=== PATIENT | male | born 1970 | race Caucasian/White ===

== ENCOUNTER 2016-07-17 23:42 | Inpatient (IN) | payer BC, OTHER ==
[~2016-07-17] VITALS: Ht 175.3 cm; Wt 211.8 kg
[~2016-07-17 23:42] MED LIST: ALBU8.5H2 IH; AMIO200T2 PO; APIX2.5T PO; APIX5TAB PO; ASCO500T6 PO; ASPI-983 PO; BENZ200C25 PO; CEFU500T PO; CIPR500T78 PO; DILT240C53 PO; DILT240C90 PO; FURO-124 PO; FURO-125 PO; FURO40TA4 PO; LISI1TAB6 PO; METF500T8 PO; METH4TAB PO; METO100T2 PO; METO50TA2 PO; METO50TA7 PO; NYST15OI13 TP; POTA10TA PO; POTA10TA36 PO; SULF1TAB35 PO; VITA1CAP PO; [UNRECOGNIZED DRUG - CODE] PO
[2016-07-17 23:57] LABS: ABG HCO3 27 MMOL/L (23-27); ABG OXYGEN SATURATION 97 % (94-100); ABG PO2 111 MMHG (79-93); ABG TCO2 29.1 MMOL/L (21.0-31.0)
[2016-07-17 23:59] LABS: ABG PCO2 82 MMHG (35-45); ABG PH 7.13 (7.37-7.43)
[2016-07-17 23:59] LABS: BASOPHILS # (AUTO) 0.1 10^3/uL (0.0-0.1); BASOPHILS % (AUTO) 0 % (0-10); EOSINOPHILS # (AUTO) 0.1 10^3/uL (0.0-0.3); EOSINOPHILS % (AUTO) 1 % (0-10); LYMPHOCYTES # (AUTO) 3.9 X 10^3 (1.0-4.0); LYMPHOCYTES % (AUTO) 24 % (12-44); MEAN CORPUSCULAR HEMOGLOBIN 20 PG (25-34); MEAN CORPUSCULAR HGB CONC 27 G/DL (32-36); MEAN CORPUSCULAR VOLUME 73 FL (80-99); MEAN PLATELET VOLUME 10.7 FL (7.4-10.4); MONOCYTES % (AUTO) 12 % (0-12); NEUTROPHILS # (AUTO) 10.6 X 10^3 (1.8-7.8); NEUTROPHILS % (AUTO) 64 % (42-75); PLATELET COUNT 221 10^3/uL (130-400); RED BLOOD COUNT 6.81 10^6/uL (4.35-5.85); RED CELL DISTRIBUTION WIDTH 22.6 % (10.0-14.5); WHITE BLOOD COUNT 16.8 10^3/uL (4.3-11.0)
[2016-07-18] VITALS (31 sets, daily range): BP systolic 112–189; BP diastolic 52–107
[2016-07-18] LABS: PATIENT TEMP 96.7
[2016-07-18] MEDS ORDERED: FUROSEMIDE 40 MG/4 ML INJ (LASIX) ONE
--- NOTE | 2016-07-18 00:03 | ED Cardiac General ---
History of Present Illness General Stated Complaint: POST CODE BLUE Source: patient Exam Limitations: no limitations History of Present Illness Time seen by provider: 23:40 Initial Comments Patient's friend was helping him out of bed when the patient collapsed. Friend was unable to obtain parents and started CPR and called 911. Patient was given epinephrine and intubated with esophageal obturator airway by EMS and regained a pulse. He was asystole on EMS arrival. Friend says he has been ill for several days. He has been complaining of abdominal pain. He has not gotten out of bed much. Allergies and Home Medications Allergies Coded Allergies: Penicillins (Unverified Allergy, Unknown, 12/12/13) Home Medications Apixaban 5 Mg Tablet, 5 MG PO BID, (Reported) Ascorbic Acid 500 Mg Tablet, 500 MG PO DAILY, (Reported) Diltiazem HCl 240 Mg Cap.er.24h, 240 MG PO DAILY, (Reported) Furosemide 40 Mg Tablet, 40 MG PO DAILY, (Reported) Lisinopril/Hydrochlorothiazide 1 Each Tablet, 1 TAB PO DAILY, (Reported) LAST FILLED 12/11/15 #90 Metformin HCl 500 Mg Tab.er.24h, 500 MG PO BID WITH MEALS, (Reported) Metoprolol Tartrate 100 Mg Tablet, 100 MG PO BID, (Reported) LAST FILLED 12/14/15 #180 Multivits-Minerals/FA/Lycopene 1 Each Tablet, 1 TAB PO DAILY, (Reported) Potassium Chloride 10 Meq Tab.er.prt, 10 MEQ PO DAILY, (Reported) Vitamin B Complex 1 Each Capsule, 1 CAP PO DAILY, (Reported) Review of Systems Constitutional: see HPI, other (patient unable to provide review of systems due to condition) Respiratory: See HPI Cardiovascular: See HPI Past Xctcijm-Grogwh-Fulaxd Hx Patient Social History Type Used: Cigarettes Recent Hopitalizations: Yes (DECEMBER 2015) Immunizations Up To Date Tetanus Booster (TDap): More than 5yrs Seasonal Allergies Seasonal Allergies: No Surgeries HX Surgeries: No Respiratory Hx Respiratory Disorders: Yes Respiratory Disorders: Sleep Apnea, COPD Cardiovascular Hx Cardiac Disorders: Yes (CHF, CARDIOVERSION IN JANUARY 2016) Cardiac Disorders: Angina, Atrial Fibrillation, Hypertension Neurological Hx Neurological Disorders: Yes (BEGINNING TO GET TICS AND LOSS OF BALANCE) Reproductive System Hx Reproductive Disorders: No Sexually Transmitted Disease: No HIV/AIDS: No Genitourinary Hx Genitourinary Disorders: No Gastrointestinal Hx Gastrointestinal Disorders: No Musculoskeletal Hx Musculoskeletal Disorders: No Endocrine Hx Endocrine Disorders: Yes (ENLARGED THYROID) Endocrine Disorders: Diabetes, Non-Insulin dep HEENT HX ENT Disorders: No Loss of Vision: Denies Hearing Impairment: Denies Cancer Hx Cancer: No Psychosocial Hx Psychiatric Problems: Yes Behavioral Health Disorders: Sleep Difficulties Integumentary HX Skin/Integumentary Disorder: Yes (R LOWER EXT CELLULITIS) Blood Transfusions Hx Blood Disorders: No Family Medical History Family Medial History: Diabetes mellitus 19 MOTHER Hypertension 19 MOTHER Physical Exam Vital Signs Vital Sign - Last 12Hours 07/17/16 07/18/16 23:43 00:50 Temp 96.7 Pulse 68 Resp 14 B/P (MAP) 158/97 Pulse Ox 97 O2 Delivery Ambu-Bag O2 Flow Rate 15.00 FiO2 100 Capillary Refill : General Appearance: Obese, Other (unconscious, flaccid extremities, being bagged [id number].) HEENT: Pharynx Normal Respiratory: Decreased Breath Sounds Cardiovascular: Regular Rate, Rhythm, No Edema Gastrointestinal: Soft, Distended Extremity: Normal Inspection Neurologic/Psychiatric: Alert, No Motor/Sensory Deficits Skin: Normal Color, Warm/Dry Focused Exam Lactic Acid Level Laboratory Tests Test 07/17/16 23:50 Lactic Acid Level 6.61 MMOL/L (0.50-2.00) *H Progress/Results/Core Measures Results/Orders Lab Results Laboratory Tests Test 07/17/16 23:47 07/17/16 23:50 07/18/16 00:00 07/18/16 00:01 Range/Units Blood Gas Puncture Site RIGHT BRACHIAL Blood Gas Patient Temperature 96.7 Arterial Blood pH 7.13 *L 7.37-7.43 Arterial Blood Partial Pressure CO2 82 *H 35-45 MMHG Arterial Blood Partial Pressure O2 111 H 79-93 MMHG Arterial Blood HCO3 27 23-27 MMOL/L Arterial Blood Total CO2 29.1 21.0-31.0 MMOL/L Arterial Blood Oxygen Saturation 97 94-100 % Arterial Blood Base Excess -2.0 -2.5-2.5 MMOL/L Trav Test NA Blood Gas Ventilator Setting NO Blood Gas Inspired Oxygen 10L White Blood Count 16.8 H 4.3-11.0 10^3/uL Red Blood Count 6.81 H 4.35-5.85 10^6/uL Hemoglobin 13.3 13.3-17.7 G/DL Hematocrit 49 40-54 % Mean Corpuscular Volume 73 L 80-99 FL Mean Corpuscular Hemoglobin 20 L 25-34 PG Mean Corpuscular Hemoglobin Concent 27 L 32-36 G/DL Red Cell Distribution Width 22.6 H 10.0-14.5 % Platelet Count 221 130-400 10^3/uL Mean Platelet Volume 10.7 H 7.4-10.4 FL Neutrophils (%) (Auto) 64 42-75 % Lymphocytes (%) (Auto) 24 12-44 % Monocytes (%) (Auto) 12 0-12 % Eosinophils (%) (Auto) 1 0-10 % Basophils (%) (Auto) 0 0-10 % Neutrophils # (Auto) 10.6 H 1.8-7.8 X 10^3 Lymphocytes # (Auto) 3.9 1.0-4.0 X 10^3 Monocytes # (Auto) 2.0 H 0.0-1.0 X 10^3 Eosinophils # (Auto) 0.1 0.0-0.3 10^3/uL Basophils # (Auto) 0.1 0.0-0.1 10^3/uL Prothrombin Time 18.8 H 12.2-14.7 SEC INR Comment 1.6 H 0.8-1.4 Activated Partial Thromboplast Time 30 24-35 SEC Sodium Level 140 135-145 MMOL/L Potassium Level 5.1 H 3.6-5.0 MMOL/L Chloride Level 98 98-107 MMOL/L Carbon Dioxide Level 23 21-32 MMOL/L Anion Gap 19 H 5-14 MMOL/L Blood Urea Nitrogen 47 H 7-18 MG/DL Creatinine 2.20 H 0.60-1.30 MG/DL Estimat Glomerular Filtration Rate 33 BUN/Creatinine Ratio 21 Glucose Level 215 H 70-105 MG/DL Lactic Acid Level 6.61 *H 0.50-2.00 MMOL/L Calcium Level 8.2 L 8.5-10.1 MG/DL Magnesium Level 2.6 H 1.8-2.4 MG/DL Total Bilirubin 0.6 0.1-1.0 MG/DL Aspartate Amino Transf (AST/SGOT) 104 H 5-34 U/L Alanine Aminotransferase (ALT/SGPT) 102 H 0-55 U/L Alkaline Phosphatase 88 40-136 U/L Troponin I < 0.30 <0.30 NG/ML B-Type Natriuretic Peptide 542.9 H <100.0 PG/ML Total Protein 6.2 L 6.4-8.2 G/DL Albumin 3.6 3.2-4.5 G/DL Urine Color YELLOW Urine Clarity VERY CLOUDY H Urine pH 6 5-9 Urine Specific Slemp 1.025 H 1.016-1.022 Urine Protein 3+ H NEGATIVE Urine Glucose (UA) NEGATIVE NEGATIVE Urine Ketones NEGATIVE NEGATIVE Urine Nitrite NEGATIVE NEGATIVE Urine Bilirubin NEGATIVE NEGATIVE Urine Urobilinogen 4 H NORMAL MG/DL Urine Leukocyte Esterase 2+ H NEGATIVE Urine RBC (Auto) 3+ H NEGATIVE Urine RBC 5-10 H /HPF Urine WBC 5-10 H /HPF Urine Squamous Epithelial Cells 2-5 /HPF Urine Crystals PRESENT H /LPF Urine Amorphous Sediment LARGE RYLEE URATES H /LPF Urine Bacteria FEW H /HPF Urine Casts NONE /LPF Urine Mucus MODERATE H /LPF Urine Other FEW SPERM H /HPF Urine Culture Indicated YES My Orders Orders - RUTH PORTILLO MD Arterial Blood Gas (07/17/16 23:48) Lactic Acid Analyzer (07/17/16 23:48) Cbc With Automated Diff (07/17/16 23:48) Magnesium (07/17/16 23:48) Chest 1 View, Ap/Pa Only (07/17/16 23:48) Ekg Tracing (07/17/16 23:48) Cardiac Profile 1 (07/17/16 23:48) Comprehensive Metabolic Panel (07/17/16 23:48) Protime With Inr (07/17/16 23:48) Partial Thromboplastin Time (07/17/16 23:48) O2 (07/17/16 23:48) Monitor-Rhythm Ecg Trace Only (07/17/16 23:48) Saline Lock/Iv-Start (07/17/16 23:48) BNP (07/17/16 23:48) Furosemide Injection (Lasix Injection) (07/18/16 00:00) Ct Abdomen/Pelvis Wo (07/18/16 00:07) Blood Culture (07/18/16 00:18) Ua Culture If Indicated (07/18/16 00:33) Ns Iv 1000 Ml (Sodium Chloride 0.9%) (07/18/16 01:00) Urine Culture (07/18/16 00:01) Drug Screen Stat (Urine) (07/18/16 01:08) Levofloxacin 500 Mg/100 Ml Iv (Levaquin (07/18/16 01:30) Medications Given in ED Current Medications Medications Dose Ordered Sig/Evie Route Start Time Stop Time Status Last Admin Dose Admin Furosemide 40 mg STK-MED ONCE .ROUTE 07/18/16 00:00 07/18/16 00:04 DC 07/18/16 00:07 40 MG Vital Signs/I&O Vital Sign - Last 12Hours 07/17/16 07/18/16 23:43 00:50 Temp 96.7 Pulse 68 Resp 14 B/P (MAP) 158/97 Pulse Ox 97 98 O2 Delivery Ambu-Bag Ambu-Bag O2 Flow Rate 15.00 FiO2 100 Progress Note : Time: 00:55 Progress Note Patient remains unconscious. He continues to be oxygenated well via the [employer]. [employer]ACHINE was consulted to switch to endotracheal tube. Patient being fluid resuscitated. Initially given some Lasix thinking that he was in pulmonary edema given the look of his x-ray. Will need admission to ICU. Critical Care Note Critical Care Total Time (minutes) Total critical care time spent with this patient was 60 minutes Departure Communication Time/Spoke to Admitting Phy: 01:00 Communication I spoke with Dr. Min who agrees to admit to ICU. Impression Impression: Primary Impression: Cardiopulmonary arrest with successful resuscitation Disposition: ADMITTED INPATIENT Condition: Stable Decision to Admit Reason: Admit from ER (General) Decision to Admit/Date: Jul 18, 2016 Time/Decision to Admit Time: 01:00 Departure-Patient Inst. Referrals: [facility] (PCP/Family) Primary Care Physician RUTH PORTILLO MD Jul 18, 2016 00:03
[2016-07-18] MEDS ORDERED: FUROSEMIDE 40 MG/4 ML INJ (LASIX) IVP ONE (00:15)
[2016-07-18 00:17] LABS: INR 1.6 (0.8-1.4); PROTHROMBIN TIME PATIENT 18.8 SEC (12.2-14.7)
[2016-07-18 00:18] LABS: ALANINE AMINOTRANSFERASE 102 U/L (0-55); ALBUMIN 3.6 G/DL (3.2-4.5); ANION GAP 19 MMOL/L (5-14); ASPARTATE AMINO TRANSFERASE 104 U/L (5-34); BILIRUBIN,TOTAL 0.6 MG/DL (0.1-1.0); BLOOD UREA NITROGEN 47 MG/DL (7-18); BUN/CREATININE RATIO 21; CALCIUM 8.2 MG/DL (8.5-10.1); CARBON DIOXIDE 23 MMOL/L (21-32); CHLORIDE 98 MMOL/L (98-107); GFR ESTIMATED 33; GLUCOSE 215 MG/DL (70-105); MAGNESIUM 2.6 MG/DL (1.8-2.4); POTASSIUM 5.1 MMOL/L (3.6-5.0); SODIUM 140 MMOL/L (135-145); TOTAL PROTEIN 6.2 G/DL (6.4-8.2)
[2016-07-18 00:44] LABS: BILIRUBIN,URINE NEGATIVE (NEGATIVE); KETONES,URINE NEGATIVE (NEGATIVE); LEUKOCYTE ESTERASE ,URINE 2+ (NEGATIVE); NITRITE,URINE NEGATIVE (NEGATIVE); PH,URINE 6 (5-9); PROTEIN,URINE 3+ (NEGATIVE); UROBILINOGEN,URINE 4 MG/DL (NORMAL)
[2016-07-18] MEDS ORDERED: NS IV 1000 ML 1,000 ML IV SCH (01:00)
[2016-07-18] MEDS ORDERED: LEVOFLOXACIN 500 MG/100 ML IV 100 ML IV ONE (01:30)
[2016-07-18] MEDS ORDERED: MIDAZOLAM 5 MG/5 ML (VERSED) VIAL IVP ONE (01:45)
[2016-07-18 02:47] LABS: ABG BASE EXCESS 4.4 MMOL/L (-2.5-2.5); ABG HCO3 31 MMOL/L (23-27); ABG OXYGEN SATURATION 99 % (94-100); ABG PO2 114 MMHG (79-93); ABG TCO2 33.7 MMOL/L (21.0-31.0)
[2016-07-18 02:49] LABS: ABG PCO2 71 MMHG (35-45); ABG PH 7.26 (7.37-7.43); ALLENS TEST YES-POS; PATIENT TEMP 95.5
[2016-07-18] MEDS ORDERED: VANCOMYCIN 1500 MG/NS 500 ML IVPB IV SCH ×2 (03:30)
[2016-07-18] MEDS ORDERED: fentaNYL INJECTION 100 MCG/2 ML AMP ONE (03:32)
[2016-07-18] MEDS ORDERED: NS (IVPB) 50 ML ONE ×2 (03:33→11:11)
[2016-07-18] MEDS: fentaNYL INJECTION 100 MCG/2 ML AMP IV PRN ×3 (03:39→05:42)
[2016-07-18 03:41] LABS: BASOPHILS % (AUTO) 0 % (0-10); EOSINOPHILS % (AUTO) 0 % (0-10); LYMPHOCYTES # (AUTO) 1.2 X 10^3 (1.0-4.0); LYMPHOCYTES % (AUTO) 8 % (12-44); MEAN CORPUSCULAR HEMOGLOBIN 20 PG (25-34); MEAN CORPUSCULAR HGB CONC 27 G/DL (32-36); MEAN CORPUSCULAR VOLUME 72 FL (80-99); MONOCYTES # (AUTO) 2.2 X 10^3 (0.0-1.0); MONOCYTES % (AUTO) 16 % (0-12); NEUTROPHILS # (AUTO) 10.7 X 10^3 (1.8-7.8); NEUTROPHILS % (AUTO) 75 % (42-75); PLATELET COUNT 217 10^3/uL (130-400); RED BLOOD COUNT 6.08 10^6/uL (4.35-5.85); RED CELL DISTRIBUTION WIDTH 22.2 % (10.0-14.5); WHITE BLOOD COUNT 14.1 10^3/uL (4.3-11.0)
[2016-07-18] MEDS ORDERED: CLINDAMYCIN 900 MG/6ML (CLEOCIN) VIAL IV SCH (03:45)
[2016-07-18 03:49] LABS: ABG BASE EXCESS 5.1 MMOL/L (-2.5-2.5); ABG HCO3 31 MMOL/L (23-27); ABG OXYGEN SATURATION 99 % (94-100); ABG PCO2 63 MMHG (35-45); ABG PO2 106 MMHG (79-93); ABG TCO2 33.5 MMOL/L (21.0-31.0)
[2016-07-18 03:54] LABS: ABG PH 7.31 (7.37-7.43); ALLENS TEST YES-POS; PATIENT TEMP 95.6
[2016-07-18] MEDS ORDERED: VANCOMYCIN 1000 MG/VIAL ONE (03:54)
[2016-07-18] MEDS ORDERED: NS (IVPB) 100 ML ONE ×2 (03:54→05:45)
[2016-07-18] MEDS ORDERED: NS (IVPB) 250 ML ONE (03:54)
[2016-07-18] MEDS ORDERED: VANCOMYCIN 500 MG/VIAL IV ONE (03:54)
[2016-07-18 03:59] LABS: CREATININE SERUM 2.04 MG/DL (0.60-1.30); MAGNESIUM 2.2 MG/DL (1.8-2.4); PHOSPHORUS 6.2 MG/DL (2.3-4.7); POTASSIUM 5.2 MMOL/L (3.6-5.0)
[2016-07-18] MEDS ORDERED: NS IV 1000 ML 1,000 ML IV ONE (05:15)
[2016-07-18] MEDS ORDERED: MIDAZOLAM FOR DRIPS 10 MG/2 ML VIAL ONE (05:44)
[2016-07-18] MEDS: KCL 20 MEQ TAB (K-DUR) PO SCH (05:53)
[2016-07-18] MEDS: POTASSIUM CL 10MEQ/50ML IVPB 50 ML IV SCH (05:53)
[2016-07-18] MEDS: MAGNESIUM 1 GM/100 ML IVPB 100 ML IV SCH (05:53)
[2016-07-18] MEDS: MIDAZOLAM INJECTION FOR DRIPS 50 MG in NS (IVPB) 90 ML IV SCH (05:58)
--- NOTE | 2016-07-18 06:33 | Pulmonary Consultation ---
History of Present Illness History of Present Illness Date of Consultation 07/18/16 06:21 Date of Admission History of Present Illness 45yo presented to ED after witnessed arrest Pt was coded for 19min prior to ED arrival. Pt was asystole upon EMS arrival. Pt is intubated with esophageal obturator. Anesthesia was called to place regular ET tube however secondary to patients morbid obesity and large tongue they decided to wait until this morning and do it in surgery. Unable to obtain ROS currently secondary to patient being unresponsive on ventilator. No family/friends currently at bedside. Allergies and Home Medications Allergies Coded Allergies: Penicillins (Unverified Allergy, Unknown, 12/12/13) Home Medications Apixaban 5 Mg Tablet, 5 MG PO BID, (Reported) Ascorbic Acid 500 Mg Tablet, 500 MG PO DAILY, (Reported) Diltiazem HCl 240 Mg Cap.er.24h, 240 MG PO DAILY, (Reported) Furosemide 40 Mg Tablet, 40 MG PO DAILY, (Reported) Lisinopril/Hydrochlorothiazide 1 Each Tablet, 1 TAB PO DAILY, (Reported) LAST FILLED 12/11/15 #90 Metformin HCl 500 Mg Tab.er.24h, 500 MG PO BID WITH MEALS, (Reported) Metoprolol Tartrate 100 Mg Tablet, 100 MG PO BID, (Reported) LAST FILLED 12/14/15 #180 Multivits-Minerals/FA/Lycopene 1 Each Tablet, 1 TAB PO DAILY, (Reported) Potassium Chloride 10 Meq Tab.er.prt, 10 MEQ PO DAILY, (Reported) Vitamin B Complex 1 Each Capsule, 1 CAP PO DAILY, (Reported) Past Vwytpln-Oshrff-Usprhh Hx Patient Social History Alcohol Use: Denies Use Recreational Drug Use: No Smoking Status: Current Someday Smoker Type Used: Cigarettes 2nd Hand Smoke Exposure: No Recent Foreign Travel: No Contact w/Someone Who Travel: No Recent Infectious Disease Expo: No Recent Hopitalizations: No Immunizations Up To Date Tetanus Booster (TDap): More than 5yrs Seasonal Allergies Seasonal Allergies: No Surgeries HX Surgeries: No Respiratory Hx Respiratory Disorders: Yes Respiratory Disorders: Sleep Apnea, COPD Cardiovascular Hx Cardiac Disorders: Yes (CHF, CARDIOVERSION IN JANUARY 2016) Cardiac Disorders: Angina, Atrial Fibrillation, Hypertension Neurological Hx Neurological Disorders: Yes Reproductive System Hx Reproductive Disorders: No Sexually Transmitted Disease: No HIV/AIDS: No Genitourinary Hx Genitourinary Disorders: No Gastrointestinal Hx Gastrointestinal Disorders: No Musculoskeletal Hx Musculoskeletal Disorders: No Endocrine Hx Endocrine Disorders: Yes (ENLARGED THYROID) Endocrine Disorders: Diabetes, Non-Insulin dep HEENT HX ENT Disorders: No Loss of Vision: Denies Hearing Impairment: Denies Cancer Hx Cancer: No Psychosocial Hx Psychiatric Problems: Yes Behavioral Health Disorders: Sleep Difficulties Integumentary HX Skin/Integumentary Disorder: Yes (R LOWER EXT CELLULITIS) Blood Transfusions Hx Blood Disorders: No Family Medical History Family Medial History: Diabetes mellitus 19 MOTHER Hypertension 19 MOTHER Exam Exam Vital Signs Date Time Temp Pulse Resp B/P (MAP) Pulse Ox O2 Delivery O2 Flow Rate FiO2 07/18/16 05:58 130/76 07/18/16 04:40 96.7 07/18/16 04:30 62 10 134/94 98 Mechanical Ventilator 70.00 07/18/16 04:26 61 31 98 70 07/18/16 04:00 56 10 130/83 98 Mechanical Ventilator 70.00 07/18/16 03:45 55 28 138/86 98 Mechanical Ventilator 70.00 07/18/16 03:30 60 18 138/86 98 Mechanical Ventilator 70.00 07/18/16 03:15 58 40 130/82 100 Mechanical Ventilator 70.00 07/18/16 03:00 54 17 124/64 99 Mechanical Ventilator 70.00 07/18/16 03:00 53 32 100 70 07/18/16 02:45 52 20 118/73 99 Mechanical Ventilator 80.00 07/18/16 02:30 95.5 55 13 118/75 99 Mechanical Ventilator 80.00 07/18/16 02:30 57 43 100 80 07/18/16 02:15 56 18 100 100 07/18/16 02:15 67 14 98 07/18/16 00:50 96.7 68 14 158/97 98 Ambu-Bag 07/17/16 23:43 97 Ambu-Bag 15.00 100 07/17/16 23:42 14 Ambu-Bag 15.00 100.00 I & O 07/18/16 07:00 Intake Total 2506 ml Balance 2506 ml General Appearance: Obese, Other (unresponsive ) HEENT: Other (pupils are fixed) Respiratory: Decreased Breath Sounds Cardiovascular: Regular Rate, Rhythm, No Edema Capillary Refill: Greater Than 3 Seconds Gastrointestinal: normal bowel sounds, non tender, soft Extremity: Normal Inspection Neurologic/Psychiatric: Other (Pt does respond to painful stimuli ) Skin: Normal Color, Warm/Dry Lymphatic: No Adenopathy Results Lab Laboratory Tests 07/17/16 23:50 07/18/16 03:34 Assessment/Plan Assessment/Plan S/P Code blue Acute respiratory failure with very difficult airway - esophageal obturator tube needs to be exchanged with endotracheal tube. Anesthesia evaluated patient and state that his tongue is too swollen for oral intubation. Morbidly obese with probable severe PAYAL contributing to his current status -Given patients difficult airway consider tracheostomy tube if patient is stable for surgery. If small endotracheal tube is placed it will make ventilator weaning much more difficult. -Consult Dr. Javed for possible tracheostomy Dependent atelectasis Abdominal Cellulitis -tobiaso and Lindsey Acute renal failure -IVF Clinical Quality Measures DVT/VTE Risk/Contraindication: Risk Factor Score Per Nursin RFS Level Per Nursing on Admit: 4+=Very High YEYO ALLISON DO Jul 18, 2016 06:33
--- NOTE | 2016-07-18 06:50 | Diagnostic Imaging Report ---
PROCEDURE: CT abdomen and pelvis without contrast. TECHNIQUE: Multiple contiguous axial images were obtained through the abdomen and pelvis without the use of intravenous contrast. INDICATION: Generalized abdominal pain, status post CODE BLUE. COMPARISON: None. DISCUSSION: Consolidation is present within the bilateral lung bases, atelectasis and/or pneumonia. Mild cardiomegaly is present. No pleural or pericardial fluid. Bilateral rib fractures are noted, likely due to recent CPR. Cholelithiasis is present. Fatty hepatomegaly is noted. Mild ascites is present. Mild induration of the mesentery, likely due to edema. Anasarca is noted. The appendix is unremarkable. The large and small bowel loops appear within normal limits. The prostate is within normal size. Urinary bladder is decompressed by Gallegos catheter. The stomach, spleen, pancreas, adrenal glands, and kidneys are unremarkable. IMPRESSION: 1. Ascites, mesenteric edema, and anasarca. 2. Bibasilar consolidation. 3. Cholelithiasis. 4. Fatty hepatomegaly. 5. Cardiomegaly and bilateral rib fractures. 6. Agree with preliminary report. Dictated by: Dictated on workstation # [id number]
[2016-07-18] MEDS ORDERED: DEXTROSE 50% 50 ML (IMS) SYR IV ONE (07:15)
[2016-07-18] MEDS ORDERED: inSUlin (REGULAR) HUMAN 1 UNIT/0.01 ML (CHARGE PER UNIT) IV ONE (07:15)
[2016-07-18] MEDS ORDERED: ROCURONIUM 50 MG/5 ML (ZEMURON) VIAL IV ONE (07:20)
[2016-07-18] MEDS ORDERED: PROPOFOL DRIP (ICU) 100 ML IV ONE ×3 (07:24→18:56)
--- NOTE | 2016-07-18 07:29 | Diagnostic Imaging Report ---
INDICATION: Dyspnea, intubation, status post CODE BLUE. DISCUSSION: Two views of the chest were obtained, comparison 01/27/2016. Exam is limited due to portable technique and patient body habitus. Endotracheal tube is projected adjacent to the air-filled trachea, concerning for esophageal intubation. Recommend clinical correlation. Cardiomegaly is noted. Bilateral mixed interstitial alveolar opacities likely represent mild pulmonary edema. No pleural fluid or pneumothorax identified on the supine views. Elevated right hemidiaphragm is again noted. Impression: 1. Cardiomegaly with mild pulmonary edema. 2. Endotracheal tube is projected adjacent to the air-filled trachea on these two supine views, concerning for esophageal intubation. Recommend clinical correlation. Note to logistics support: This is a critical finding, please call results. Report was called to Carol/REST ROOM ATTENDANT by vikas at 7:27 am. Dictated by: Dictated on workstation # [id number]
[2016-07-18] MEDS: inSUlin (REGULAR) HUMAN 1 UNIT/0.01 ML (CHARGE PER UNIT) SC SCH ×5 (07:51→23:34)
[2016-07-18] MEDS: FAMOTIDINE 20MG/2ML IV (PEPCID) IV SCH ×2 (08:45→20:12)
[2016-07-18] MEDS ORDERED: ENOXAPARIN 40 MG/0.4 ML (LOVENOX) SYR SC SCH (09:30)
[2016-07-18] MEDS: PROPOFOL DRIP (ICU) 100 ML IV SCH ×5 (09:31→22:49)
--- NOTE | 2016-07-18 10:03 | Diagnostic Imaging Report ---
EXAMINATION: Portable upright radiograph of the chest. INDICATION: ET tube placement. COMPARISON: 07/17/2016. FINDINGS: There is an ET tube seen in the mid trachea. An NG tube is also noted with its distal tip not well seen on this image. The tip is probably in the stomach, however. There is interval development of a large opacity in the right upper lobe, likely lobar atelectasis. There is also infiltrate or atelectasis in the right infrahilar region. Background vascular congestion is suggested. The heart size is markedly enlarged. IMPRESSION: Development of large consolidation in the right upper lobe, likely lobar atelectasis. There is also right infrahilar patchy infiltrate or atelectasis and background vascular congestion. The findings were discussed with Dr. Bhatti at the time of dictation. Dictated by: Dictated on workstation # [id number]
--- NOTE | 2016-07-18 11:00 | Pulmonary Progress Note ---
Standard Progress Note Progress Notes PT is hypoxic requiring increased oxygen. Assessment & Plan S/P Code blue Acute respiratory failure with very difficult airway Morbidly obese with probable severe PAYAL contributing to his current status Dependent atelectasis Abdominal Cellulitis -vanco and Cleocin Acute renal failure -IVF Called by radiology secondary to CXR showing RUL lobar atelectasis. Discussed with family will do bronchoscopy secondary to probable mucous plugging. Total time with patient and family 60min. YEYO ALLISON DO Jul 18, 2016 11:00
[2016-07-18] MEDS: CLINDAMYCIN 900 MG/NS 50 ML IVPB IV SCH ×4 (11:44→19:14)
[2016-07-18] MEDS: VANCOMYCIN INJECTION 2,000 MG in NS IV 500 ML 500 ML IV SCH (11:44)
--- NOTE | 2016-07-18 11:47 | Pulmonary Procedures ---
Pulmonary Procedures Date of Procedure Date of Service: Jul 18, 2016 Bronch Bronchoscopy with bronchoalveolar lavage (BAL). Preop DX mucous plugging elizabeth RUL Postop DX: same Complications: none After informed consent obtained and formal time out pt was sedated using Fentanyl and Versed. Bronchoscope was advanced through the ET tube. An anatomical tour was undertaken down to the segmental bronchi bilaterally. No endobronchial lesions noted. From the RUL a bronchoalveolar lavage (BAL), was obtained. Pt had mucous plugging bilaterally elizabeth RUL Pt tolerated procedure well. No complications noted. Stat CXR is pending. YEYO ALLISON DO Jul 18, 2016 11:47
[2016-07-18] MEDS ORDERED: AMIO200T2 PO (12:00)
--- NOTE | 2016-07-18 12:09 | Diagnostic Imaging Report ---
Portable semi-upright AP view of the chest. INDICATION: Post bronchoscopy. FINDINGS: There is better aeration in the right upper lobe with persistent atelectasis. Right infrahilar patchy infiltrate is still seen. The left side demonstrates infrahilar atelectasis with background vascular congestion. Moderate cardiomegaly is seen. The ET tube and NG tube are in good position. IMPRESSION: Slightly improved right upper lobe atelectasis. Bilateral infrahilar infiltrates and background pulmonary vascular congestion stable. Dictated by: Dictated on workstation # [id number]
--- NOTE | 2016-07-18 12:32 | History & Physicial ([facility]S) ---
HPI History of Present Illness: 45 yo M that had a witnessed collapse as roommate was trying to help him get out of bed. Roommate began CPR and patient received CPR for 19 mins prior to ER arrival. Speaking with roommate he states that Sonny had not been feeling well for the past several days and was complaining about abdominal pain. Roommate denies any other complaints by patient. Source: other (Roomate) Exam Limitations: clinical condition Date seen by provider: Jul 18, 2016 Attending Physician Nadia Min DO PCP William,[facility] Date of Admission Jul 18, 2016 at 00:15 Home Medications Home Medications Reviewed patient Home Medication Reconciliation Form Allergies Coded Allergies: Penicillins (Unverified Allergy, Unknown, 12/12/13) [id number] Hx Patient Social History Alcohol Use: Denies Use Recreational Drug Use: No Smoking Status: Current Someday Smoker Type Used: Cigarettes 2nd Hand Smoke Exposure: No Recent Foreign Travel: No Contact w/other who traveled: No Recent Hopitalizations: No Recent Infectious Disease Expo: No Immunizations Up To Date Tetanus Booster (TDap): More than 5yrs Past Medical History Atrial Fibrillation NIDDM HTN Systolic Heart Failure Family Medical History Family History: Diabetes mellitus 19 MOTHER Hypertension 19 MOTHER Review of Systems ([facility]C) Constitutional: other (Unable to get ROS because patient unresponsive and intubated) Reviewed Test Results Reviewed Test Results Lab Laboratory Tests Test 07/17/16 23:47 07/17/16 23:50 07/18/16 00:00 07/18/16 00:01 Range/Units Blood Gas Puncture Site RIGHT BRACHIAL Blood Gas Patient Temperature 96.7 Arterial Blood pH 7.13 *L 7.37-7.43 Arterial Blood Partial Pressure CO2 82 *H 35-45 MMHG Arterial Blood Partial Pressure O2 111 H 79-93 MMHG Arterial Blood HCO3 27 23-27 MMOL/L Arterial Blood Total CO2 29.1 21.0-31.0 MMOL/L Arterial Blood Oxygen Saturation 97 94-100 % Arterial Blood Base Excess -2.0 -2.5-2.5 MMOL/L Trav Test NA Blood Gas Ventilator Setting NO Blood Gas Inspired Oxygen 10L White Blood Count 16.8 H 4.3-11.0 10^3/uL Red Blood Count 6.81 H 4.35-5.85 10^6/uL Hemoglobin 13.3 13.3-17.7 G/DL Hematocrit 49 40-54 % Mean Corpuscular Volume 73 L 80-99 FL Mean Corpuscular Hemoglobin 20 L 25-34 PG Mean Corpuscular Hemoglobin Concent 27 L 32-36 G/DL Red Cell Distribution Width 22.6 H 10.0-14.5 % Platelet Count 221 130-400 10^3/uL Mean Platelet Volume 10.7 H 7.4-10.4 FL Neutrophils (%) (Auto) 64 42-75 % Lymphocytes (%) (Auto) 24 12-44 % Monocytes (%) (Auto) 12 0-12 % Eosinophils (%) (Auto) 1 0-10 % Basophils (%) (Auto) 0 0-10 % Neutrophils # (Auto) 10.6 H 1.8-7.8 X 10^3 Lymphocytes # (Auto) 3.9 1.0-4.0 X 10^3 Monocytes # (Auto) 2.0 H 0.0-1.0 X 10^3 Eosinophils # (Auto) 0.1 0.0-0.3 10^3/uL Basophils # (Auto) 0.1 0.0-0.1 10^3/uL Prothrombin Time 18.8 H 12.2-14.7 SEC INR Comment 1.6 H 0.8-1.4 Activated Partial Thromboplast Time 30 24-35 SEC Sodium Level 140 135-145 MMOL/L Potassium Level 5.1 H 3.6-5.0 MMOL/L Chloride Level 98 98-107 MMOL/L Carbon Dioxide Level 23 21-32 MMOL/L Anion Gap 19 H 5-14 MMOL/L Blood Urea Nitrogen 47 H 7-18 MG/DL Creatinine 2.20 H 0.60-1.30 MG/DL Estimat Glomerular Filtration Rate 33 BUN/Creatinine Ratio 21 Glucose Level 215 H 70-105 MG/DL Lactic Acid Level 6.61 *H 0.50-2.00 MMOL/L Calcium Level 8.2 L 8.5-10.1 MG/DL Magnesium Level 2.6 H 1.8-2.4 MG/DL Total Bilirubin 0.6 0.1-1.0 MG/DL Aspartate Amino Transf (AST/SGOT) 104 H 5-34 U/L Alanine Aminotransferase (ALT/SGPT) 102 H 0-55 U/L Alkaline Phosphatase 88 40-136 U/L Troponin I < 0.30 <0.30 NG/ML B-Type Natriuretic Peptide 542.9 H <100.0 PG/ML Total Protein 6.2 L 6.4-8.2 G/DL Albumin 3.6 3.2-4.5 G/DL Urine Opiates Screen NEGATIVE NEGATIVE Urine Oxycodone Screen NEGATIVE NEGATIVE Urine Methadone Screen NEGATIVE NEGATIVE Urine Propoxyphene Screen NEGATIVE NEGATIVE Urine Barbiturates Screen NEGATIVE NEGATIVE Ur Tricyclic Antidepressants Screen NEGATIVE NEGATIVE Urine Phencyclidine Screen NEGATIVE NEGATIVE Urine Amphetamines Screen NEGATIVE NEGATIVE Urine Methamphetamines Screen NEGATIVE NEGATIVE Urine Benzodiazepines Screen NEGATIVE NEGATIVE Urine Cocaine Screen NEGATIVE NEGATIVE Urine Cannabinoids Screen NEGATIVE NEGATIVE Urine Color YELLOW Urine Clarity VERY CLOUDY H Urine pH 6 5-9 Urine Specific [place] 1.025 H 1.016-1.022 Urine Protein 3+ H NEGATIVE Urine Glucose (UA) NEGATIVE NEGATIVE Urine Ketones NEGATIVE NEGATIVE Urine Nitrite NEGATIVE NEGATIVE Urine Bilirubin NEGATIVE NEGATIVE Urine Urobilinogen 4 H NORMAL MG/DL Urine Leukocyte Esterase 2+ H NEGATIVE Urine RBC (Auto) 3+ H NEGATIVE Urine RBC 5-10 H /HPF Urine WBC 5-10 H /HPF Urine Squamous Epithelial Cells 2-5 /HPF Urine Crystals PRESENT H /LPF Urine Amorphous Sediment LARGE RYLEE URATES H /LPF Urine Bacteria FEW H /HPF Urine Casts NONE /LPF Urine Mucus MODERATE H /LPF Urine Other FEW SPERM H /HPF Urine Culture Indicated YES Test 07/18/16 01:45 07/18/16 02:35 07/18/16 03:34 07/18/16 03:43 Range/Units Lactic Acid Level 1.58 0.50-2.00 MMOL/L Blood Gas Puncture Site RIGHT RADIAL RIGHT RADIAL Blood Gas Patient Temperature 95.5 95.6 Arterial Blood pH 7.26 *L 7.31 *L 7.37-7.43 Arterial Blood Partial Pressure CO2 71 *H 63 H 35-45 MMHG Arterial Blood Partial Pressure O2 114 H 106 H 79-93 MMHG Arterial Blood HCO3 31 H 31 H 23-27 MMOL/L Arterial Blood Total CO2 33.7 H 33.5 H 21.0-31.0 MMOL/L Arterial Blood Oxygen Saturation 99 99 94-100 % Arterial Blood Base Excess 4.4 H 5.1 H -2.5-2.5 MMOL/L Trav Test YES-POS YES-POS Blood Gas Ventilator Setting YES YES Blood Gas Inspired Oxygen 80% 70% White Blood Count 14.1 H 4.3-11.0 10^3/uL Red Blood Count 6.08 H 4.35-5.85 10^6/uL Hemoglobin 12.0 L 13.3-17.7 G/DL Hematocrit 44 40-54 % Mean Corpuscular Volume 72 L 80-99 FL Mean Corpuscular Hemoglobin 20 L 25-34 PG Mean Corpuscular Hemoglobin Concent 27 L 32-36 G/DL Red Cell Distribution Width 22.2 H 10.0-14.5 % Platelet Count 217 130-400 10^3/uL Mean Platelet Volume 7.4-10.4 FL Neutrophils (%) (Auto) 75 42-75 % Lymphocytes (%) (Auto) 8 L 12-44 % Monocytes (%) (Auto) 16 H 0-12 % Eosinophils (%) (Auto) 0 0-10 % Basophils (%) (Auto) 0 0-10 % Neutrophils # (Auto) 10.7 H 1.8-7.8 X 10^3 Lymphocytes # (Auto) 1.2 1.0-4.0 X 10^3 Monocytes # (Auto) 2.2 H 0.0-1.0 X 10^3 Eosinophils # (Auto) 0.0 0.0-0.3 10^3/uL Basophils # (Auto) 0.0 0.0-0.1 10^3/uL Sodium Level 141 135-145 MMOL/L Potassium Level 5.2 H 3.6-5.0 MMOL/L Chloride Level 100 98-107 MMOL/L Carbon Dioxide Level 29 21-32 MMOL/L Anion Gap 12 5-14 MMOL/L Blood Urea Nitrogen 46 H 7-18 MG/DL Creatinine 2.04 H 0.60-1.30 MG/DL Estimat Glomerular Filtration Rate 35 BUN/Creatinine Ratio 23 Glucose Level 161 H 70-105 MG/DL Calcium Level 8.0 L 8.5-10.1 MG/DL Phosphorus Level 6.2 H 2.3-4.7 MG/DL Magnesium Level 2.2 1.8-2.4 MG/DL C-Reactive Protein High Sensitivity 1.52 H 0.00-0.50 MG/DL Test 07/18/16 08:45 Range/Units Glucometer 129 H 70-110 MG/DL Radiology Date of Exam: 07/17/16 CHEST 1 VIEW, AP/PA ONLY INDICATION: Dyspnea, intubation, status post CODE BLUE. DISCUSSION: Two views of the chest were obtained, comparison 01/27/2016. Exam is limited due to portable technique and patient body habitus. Endotracheal tube is projected adjacent to the air-filled trachea, concerning for esophageal intubation. Recommend clinical correlation. Cardiomegaly is noted. Bilateral mixed interstitial alveolar opacities likely represent mild pulmonary edema. No pleural fluid or pneumothorax identified on the supine views. Elevated right hemidiaphragm is again noted. Impression: 1. Cardiomegaly with mild pulmonary edema. 2. Endotracheal tube is projected adjacent to the air-filled trachea on these two supine views, concerning for esophageal intubation. Recommend clinical correlation. Note to plate take out worker: This is a critical finding, please call results. Date of Exam: 07/18/16 CT ABDOMEN/PELVIS WO PROCEDURE: CT abdomen and pelvis without contrast. TECHNIQUE: Multiple contiguous axial images were obtained through the abdomen and pelvis without the use of intravenous contrast. INDICATION: Generalized abdominal pain, status post CODE BLUE. COMPARISON: None. DISCUSSION: Consolidation is present within the bilateral lung bases, atelectasis and/or pneumonia. Mild cardiomegaly is present. No pleural or pericardial fluid. Bilateral rib fractures are noted, likely due to recent CPR. Cholelithiasis is present. Fatty hepatomegaly is noted. Mild ascites is present. Mild induration of the mesentery, likely due to edema. Anasarca is noted. The appendix is unremarkable. The large and small bowel loops appear within normal limits. The prostate is within normal size. Urinary bladder is decompressed by Gallegos catheter. The stomach, spleen, pancreas, adrenal glands, and kidneys are unremarkable. IMPRESSION: 1. Ascites, mesenteric edema, and anasarca. 2. Bibasilar consolidation. 3. Cholelithiasis. 4. Fatty hepatomegaly. 5. Cardiomegaly and bilateral rib fractures. 6. Agree with preliminary report. Date of Exam:07/18/16 CT HEAD WO PROCEDURE: CT head without contrast. TECHNIQUE: Multiple contiguous axial images were obtained through the brain without the use of intravenous contrast. INDICATION: Periorbital edema. Unresponsive. COMPARISON: CT head without contrast 01/20/2014. FINDINGS: No intracranial hemorrhage, mass effect, hydrocephalus or extra-axial fluid collections. No CT evidence of acute infarction. Mild mucosal thickening and small amount of fluid in the maxillary and ethmoid sinuses. There are no inflammatory changes in the post-septal orbits. Prominence of the soft tissues overlying the orbits bilaterally, right greater than left. Visualized osseous structures appear intact. ETT. OGT. IMPRESSION: 1. No acute intracranial CT findings. 2. Soft tissue prominence overlying the orbits bilaterally, right greater than left. No mass or inflammatory changes within the post-septal orbits. Physical Exam-([facility]) Physical Exam Vital Signs VS - Last 72 Hours, by Label 07/17/16 07/17/16 07/18/16 07/18/16 23:42 23:43 00:50 02:10 Temp 96.7 Pulse 68 Resp 14 14 B/P (MAP) 158/97 Pulse Ox 97 98 O2 Delivery Ambu-Bag Ambu-Bag Ambu-Bag O2 Flow Rate 15.00 15.00 100.00 FiO2 100 80 07/18/16 07/18/16 07/18/16 07/18/16 02:15 02:15 02:30 02:30 Temp 95.5 Pulse 67 56 57 55 Resp 14 18 43 13 B/P (MAP) 118/75 Pulse Ox 98 100 100 99 O2 Delivery Mechanical Ventilator O2 Flow Rate 80.00 FiO2 100 80 07/18/16 07/18/16 07/18/16 07/18/16 02:45 03:00 03:00 03:15 Pulse 52 53 54 58 Resp 20 32 17 40 B/P (MAP) 118/73 124/64 130/82 Pulse Ox 99 100 99 100 O2 Delivery Mechanical Ventilator Mechanical Ventilator Mechanical Ventilator O2 Flow Rate 80.00 70.00 70.00 FiO2 70 07/18/16 07/18/16 07/18/16 07/18/16 03:30 03:45 04:00 04:00 Pulse 60 55 56 Resp 18 28 10 B/P (MAP) 138/86 138/86 130/83 Pulse Ox 98 98 98 97 O2 Delivery Mechanical Ventilator Mechanical Ventilator Mechanical Ventilator O2 Flow Rate 70.00 70.00 70.00 FiO2 70 07/18/16 07/18/16 07/18/16 07/18/16 04:26 04:30 04:40 05:00 Temp 96.7 Pulse 61 62 60 Resp 31 10 28 B/P (MAP) 134/94 134/90 Pulse Ox 98 98 97 O2 Delivery Mechanical Ventilator Mechanical Ventilator O2 Flow Rate 70.00 70.00 FiO2 70 07/18/16 07/18/16 07/18/16 07/18/16 05:30 05:58 06:00 06:30 Pulse 65 63 73 Resp 8 27 13 B/P (MAP) 130/76 130/76 145/88 146/100 Pulse Ox 98 97 97 O2 Delivery Mechanical Ventilator Mechanical Ventilator Mechanical Ventilator O2 Flow Rate 70.00 70.00 70.00 07/18/16 07/18/16 07/18/16 07/18/16 06:42 06:43 07:00 07:00 Pulse 67 69 69 Resp 28 19 B/P (MAP) 128/73 Pulse Ox 97 97 O2 Delivery Mechanical Ventilator O2 Flow Rate 60.00 60.00 FiO2 60 07/18/16 07/18/16 07/18/16 07/18/16 07:33 08:00 08:26 09:00 Temp 97.3 Pulse 78 66 64 72 Resp 18 28 16 B/P (MAP) 147/83 132/74 125/72 Pulse Ox 96 95 94 O2 Delivery Mechanical Ventilator Mechanical Ventilator O2 Flow Rate 60.00 60.00 FiO2 60 07/18/16 07/18/16 07/18/16 07/18/16 09:31 10:00 10:10 11:45 Pulse 60 60 Resp 28 28 B/P (MAP) 122/72 120/71 Pulse Ox 99 99 O2 Delivery Mechanical Ventilator O2 Flow Rate 60.00 FiO2 60 07/18/16 07/18/16 07/18/16 12:01 12:33 12:52 Temp 97.3 Pulse 70 Resp 28 B/P (MAP) 117/58 Pulse Ox 99 FiO2 60 Capillary Refill : Greater Than 3 Seconds General Appearance: other (Intubated, unconscious) HEENT: other (fixed,dilated pupils bilaterally) Respiratory: decreased breath sounds, crackles, wheezing Cardiovascular: normal peripheral pulses, regular rate, rhythm, no murmur Gastrointestinal: distended, other (Minimal bowel sounds) Extremities: slow capillary refill, other (2+ pitting edema bilaterally) Neurologic/Psychiatric: other (Withdraws to pain) Skin: rash (Erythema present on LE bilaterally and lower abdomen , no signs of abcess, no wounds ) Assessment/Plan Assessment/Plan Plan 45 yo M that was admitted following witnessed collapse and subsequent CPR Plan s/p Code Blue with ROS - Fixed and dilated pupils - Palliative care following with patient and family once they arrive Acute hypoxic respiratory failure - Currently intubated, Dr Bhatti with Pulmonary managing vent and critical care of patient Cellulitis of Abdomen and LE bilaterally - Currently on D1 Vanco/Clindamycin - blood cultures pending - Dopplers LE bilaterally pending Anasarca/edema present in abdomen Lactic Acidosis: Resolved Acute Renal Insufficiency - Likely 2/2 hypoperfusion, continue to monitor Hyperkalemia FEN: NPO DVT PPX: Lovenox Dispo: Poor Diagnosis/Problems: Clinical Quality Measures DVT/VTE Risk/Contraindication: Risk Factor Score Per Nursin RFS Level Per Nursing on Admit: 4+=Very High Copy Copies To 1: [facility]ERSherlyn HOLLY R MD Jul 18, 2016 12:31
--- NOTE | 2016-07-18 12:48 | Diagnostic Imaging Report ---
PROCEDURE: CT head without contrast. TECHNIQUE: Multiple contiguous axial images were obtained through the brain without the use of intravenous contrast. INDICATION: Periorbital edema. Unresponsive. COMPARISON: CT head without contrast 01/20/2014. FINDINGS: No intracranial hemorrhage, mass effect, hydrocephalus or extra-axial fluid collections. No CT evidence of acute infarction. Mild mucosal thickening and small amount of fluid in the maxillary and ethmoid sinuses. There are no inflammatory changes in the post-septal orbits. Prominence of the soft tissues overlying the orbits bilaterally, right greater than left. Visualized osseous structures appear intact. ETT. OGT. IMPRESSION: 1. No acute intracranial CT findings. 2. Soft tissue prominence overlying the orbits bilaterally, right greater than left. No mass or inflammatory changes within the post-septal orbits. Dictated by: Dictated on workstation # [id number]
--- NOTE | 2016-07-18 13:24 | Progress Note-Standard ---
Standard Progress Note Progress Notes/Assess & Plan Progress/Assessment & Plan Anesthesia Note ([id number]) Called to ICU to exchange Combivent Tube for an ETT. Case discussed with Dr. Bhatti and Dr. Javed. Discussed the options of oral and nasal endotracheal intubation and tracheostomy. Due to recent cardiac arrest and pt size and neck anatomy, avoiding a trach is the best option. Our plan was to give Rocuronium ( 80 mg) to paralyze the patient and attempt to get the Castillo (video laryngoscope) in for an oral endotracheal intubation with the combivent tube still in place. If this is not an option, Fiberoptic cart is in the room for a fiberoptic nasal intubation. After paralytic given (Pt on propofol drip also), The Castillo advanced into the post. oropharynx and proximal cuff of combivent tube was deflated. A grade I view of the vocal cords was seen but a 7.5 ETT would not pass. Due to brief transient desaturation, ETT and Castillo removed and proximal cuff inflated to ventilate the patient. His SaO2 returned quickly to the low 90's with combivent tube ventilation. On the second attempt the 7.5 cuffed ETT passed through the vocal cords. It was secured at 23 cm at the teeth with BS = B/L. The patient had poor dentition prior to the intubation and his upper tooth appeared loose from prior attempts with combitube insertion (loose prior to my attempts). Report of procedure given to Dr. Bhatti. Pt tolerated the procedure reasonably well. His condition is still critical. We will be available if needed. NATHANIEL SAMANO DO Jul 18, 2016 13:24
--- NOTE | 2016-07-18 14:54 | Diagnostic Imaging Report ---
EXAMINATION: Bilateral lower extremity duplex venous ultrasound. TECHNIQUE: DVT protocol. Multiple sonographic images with color Doppler and waveform interrogation were performed of the lower extremity veins, bilaterally, with compression and augmentation maneuvers. INDICATION: Bilateral leg edema. FINDINGS: There is compressibility and color flow demonstrated in the right common femoral, profunda femoris and the proximal and distal segments of the femoral vein and in the right popliteal vein. The mid right femoral vein is obscured due to edema and is not well evaluated. The left leg demonstrate patency, color flow and compressibility in the common femoral, profunda femoris, and the upper and mid segments of the femoral vein. The lower segment of the femoral vein and is not well evaluated due to edema. The left popliteal vein is patent. Veins in the calf are not well evaluated. IMPRESSION: Limited exam in the calves and in the mid to distal thigh bilaterally with no obvious DVT. Dictated by: Dictated on workstation # [id number]
[2016-07-18 15:47] LABS: CALCIUM 8.2 MG/DL (8.5-10.1); CREATININE SERUM 2.19 MG/DL (0.60-1.30); POTASSIUM 4.5 MMOL/L (3.6-5.0)
[2016-07-18] MEDS ORDERED: morphine INJ 4 MG/ML 1 ML (VIAL/SYRINGE) IVP PRN (16:30)
[2016-07-18] MEDS ORDERED: hydrALAZINE (APESOLINE) 20 MG/ML VIAL IV PRN (16:30)
[2016-07-18] MEDS: amLODIPine 10 MG (NORVASC) TAB NG SCH (17:07)
[2016-07-18] MEDS ORDERED: RT-HYPERTONIC SALINE 3% 4 ML NEB ONE (18:30)
[2016-07-18] MEDS: RT-ALBUTEROL/IPRATROPIUM 3 ML (DUONEB) VIAL INH SCH ×2 (19:12→22:19)
[2016-07-18 20:07] LABS: ABG BASE EXCESS 5.6 MMOL/L (-2.5-2.5); ABG HCO3 31 MMOL/L (23-27); ABG OXYGEN SATURATION 90 % (94-100); ABG PCO2 57 MMHG (35-45); ABG PH 7.35 (7.37-7.43); ABG PO2 63 MMHG (79-93); ABG TCO2 32.6 MMOL/L (21.0-31.0)
[2016-07-18 20:08] LABS: ALLENS TEST YES-POS; PATIENT TEMP 98.9
[2016-07-18] MEDS: AMIODARONE 200 MG (CORDARONE) TAB PO SCH (20:18)
[2016-07-18] MEDS: meTOprolol TARTRATE 50 MG (LOPRESSOR) TAB PO SCH (20:18)
[2016-07-18] MEDS: aCETylcysteine 20% (MUCOMYST) 30ML SOLN VIAL INH SCH (22:19)
[2016-07-18 22:21] LABS: ABG BASE EXCESS 5.5 MMOL/L (-2.5-2.5); ABG HCO3 31 MMOL/L (23-27); ABG OXYGEN SATURATION 92 % (94-100); ABG PCO2 54 MMHG (35-45); ABG PH 7.37 (7.37-7.43); ABG PO2 69 MMHG (79-93); ABG TCO2 32.1 MMOL/L (21.0-31.0)
[2016-07-18 22:23] LABS: ALLENS TEST YES-POS; PATIENT TEMP 99.6
[2016-07-18] MEDS ORDERED: TROUGH ORDER-PHARMACY XX NR (23:00)
[2016-07-19] VITALS (18 sets, daily range): BP systolic 97–130; BP diastolic 45–70
[2016-07-19] MEDS: VANCOMYCIN INJECTION 2,000 MG in NS IV 500 ML 500 ML IV SCH ×2 (00:17→11:51)
[2016-07-19] MEDS: RT-ALBUTEROL/IPRATROPIUM 3 ML (DUONEB) VIAL INH SCH ×3 (02:01→10:19)
[2016-07-19] MEDS: PROPOFOL DRIP (ICU) 100 ML IV SCH (02:02)
[2016-07-19] MEDS: CLINDAMYCIN 900 MG/NS 50 ML IVPB IV SCH ×4 (03:28→11:51)
[2016-07-19] MEDS: inSUlin (REGULAR) HUMAN 1 UNIT/0.01 ML (CHARGE PER UNIT) SC SCH ×3 (03:55→12:00)
[2016-07-19 04:39] LABS: BASOPHILS % (AUTO) 0 % (0-10); EOSINOPHILS # (AUTO) 0.1 10^3/uL (0.0-0.3); EOSINOPHILS % (AUTO) 1 % (0-10); LYMPHOCYTES % (AUTO) 9 % (12-44); MEAN CORPUSCULAR HEMOGLOBIN 19 PG (25-34); MEAN CORPUSCULAR HGB CONC 27 G/DL (32-36); MEAN CORPUSCULAR VOLUME 70 FL (80-99); MONOCYTES # (AUTO) 1.4 X 10^3 (0.0-1.0); MONOCYTES % (AUTO) 13 % (0-12); NEUTROPHILS # (AUTO) 8.7 X 10^3 (1.8-7.8); NEUTROPHILS % (AUTO) 77 % (42-75); PLATELET COUNT 175 10^3/uL (130-400); RED BLOOD COUNT 5.88 10^6/uL (4.35-5.85); RED CELL DISTRIBUTION WIDTH 22.3 % (10.0-14.5); WHITE BLOOD COUNT 11.2 10^3/uL (4.3-11.0)
[2016-07-19 05:05] LABS: CALCIUM 8.3 MG/DL (8.5-10.1); CREATININE SERUM 2.07 MG/DL (0.60-1.30); MAGNESIUM 2.1 MG/DL (1.8-2.4); PHOSPHORUS 3.8 MG/DL (2.3-4.7); POTASSIUM 4.2 MMOL/L (3.6-5.0)
[2016-07-19] MEDS: MAGNESIUM 1 GM/100 ML IVPB 100 ML IV SCH (05:48)
[2016-07-19] MEDS: POTASSIUM CL 10MEQ/50ML IVPB 50 ML IV SCH (05:48)
[2016-07-19] MEDS: KCL 20 MEQ TAB (K-DUR) PO SCH (05:49)
[2016-07-19] MEDS: MIDAZOLAM INJECTION FOR DRIPS 50 MG in NS (IVPB) 90 ML IV SCH (05:49)
[2016-07-19] MEDS: aCETylcysteine 20% (MUCOMYST) 30ML SOLN VIAL INH SCH (06:46)
--- NOTE | 2016-07-19 06:55 | Pulmonary Progress Note ---
Subjective Subjective/Events-last exam PT is not following command however was on diprivan all night Exam Exam Vital Signs Date Time Temp Pulse Resp B/P (MAP) Pulse Ox O2 Delivery O2 Flow Rate FiO2 07/19/16 06:00 96 28 114/56 93 Mechanical Ventilator 80.00 07/19/16 05:49 98 07/19/16 05:00 96 28 113/70 93 Mechanical Ventilator 80.00 07/19/16 04:00 90 80 07/19/16 04:00 99.8 98 28 97/46 90 Mechanical Ventilator 80.00 07/19/16 03:00 98 28 101/45 89 Mechanical Ventilator 80.00 07/19/16 02:02 93 107/47 80.00 07/19/16 02:01 93 28 89 80 07/19/16 02:00 92 14 107/47 92 Mechanical Ventilator 80.00 07/19/16 01:09 90 07/19/16 01:00 92 14 105/47 93 Mechanical Ventilator 80.00 07/19/16 00:20 94 28 90 75 07/19/16 00:00 94 27 115/55 91 Mechanical Ventilator 80.00 07/19/16 00:00 92 80 07/18/16 23:30 99.2 97 26 114/54 91 Mechanical Ventilator 80.00 07/18/16 23:00 93 28 112/53 93 Mechanical Ventilator 75.00 07/18/16 22:49 108/53 07/18/16 22:20 97 30 89 75 07/18/16 22:00 95 28 112/92 89 Mechanical Ventilator 75.00 07/18/16 21:00 83 28 127/67 91 Mechanical Ventilator 75.00 07/18/16 20:00 93 28 129/68 92 Mechanical Ventilator 75.00 07/18/16 20:00 91 75 07/18/16 19:21 97 31 89 75 07/18/16 19:08 182/118 07/18/16 19:00 109 07/18/16 19:00 98.9 103 22 117/52 89 Mechanical Ventilator 75.00 07/18/16 17:37 98.1 07/18/16 17:09 Mechanical Ventilator 07/18/16 17:00 85 29 178/102 89 Mechanical Ventilator 100.00 07/18/16 16:46 82 28 94 60 07/18/16 16:00 60 07/18/16 16:00 80 27 151/91 92 Mechanical Ventilator 100.00 07/18/16 15:00 69 22 189/107 94 Mechanical Ventilator 100.00 07/18/16 14:29 70 30 97 60 07/18/16 14:03 153/105 07/18/16 14:00 72 8 133/72 96 Mechanical Ventilator 100.00 07/18/16 13:00 65 18 133/74 93 Mechanical Ventilator 100.00 07/18/16 13:00 66 07/18/16 12:52 97.3 07/18/16 12:33 70 28 99 60 07/18/16 12:01 117/58 07/18/16 12:00 67 28 132/79 94 Mechanical Ventilator 100.00 07/18/16 12:00 60 07/18/16 11:45 28 07/18/16 11:00 67 22 125/63 90 Mechanical Ventilator 100.00 07/18/16 11:00 100.00 07/18/16 10:10 60 28 99 60 07/18/16 10:00 60 27 120/71 99 Mechanical Ventilator 60.00 07/18/16 09:31 122/72 07/18/16 09:00 72 16 125/72 94 Mechanical Ventilator 60.00 07/18/16 08:26 64 28 95 60 07/18/16 08:00 97.3 66 18 132/74 96 Mechanical Ventilator 60.00 07/18/16 08:00 60 07/18/16 07:33 78 147/83 07/18/16 07:00 69 19 128/73 97 Mechanical Ventilator 60.00 07/18/16 07:00 69 I & O 07/19/16 07:00 Intake Total 1712 ml Output Total 1755 ml Balance -43 ml General Appearance: No Apparent Distress, Obese, Other (unresponsive ) HEENT: PERRL/EOMI Respiratory: Decreased Breath Sounds Cardiovascular: Regular Rate, Rhythm, No Edema Capillary Refill: Greater Than 3 Seconds Gastrointestinal: distended, other (Minimal bowel sounds) Extremity: Normal Inspection Neurologic/Psychiatric: Other (Pt does respond to painful stimuli ) Skin: Normal Color, Warm/Dry Lymphatic: No Adenopathy Results Lab Laboratory Tests 07/17/16 23:50 07/18/16 03:34 07/18/16 15:19 07/19/16 04:24 Assessment/Plan Assessment/Plan S/P Code blue Acute respiratory failure with very difficult airway -Continue ventilator support -Change diprivan to precedex Morbidly obese with probable severe PAYAL contributing to his current status atelectasis with mucous plugging Abdominal Cellulitis -vanco and Cleocin Acute renal failure -IVF multiorgan failure -Prognosis is poor. I d/w family patients current condition and options in care. They agree to make him a DNR. We will wait another 24-48hrs to see if patient starts following commands. I did explain comfort care only to family and they will make him comfort care if he does not start to respond within 24- 48hrs. Clinical Quality Measures DVT/VTE Risk/Contraindication: Risk Factor Score Per Nursin RFS Level Per Nursing on Admit: 4+=Very High YEYO ALLISON DO Jul 19, 2016 06:55
[2016-07-19] MEDS ORDERED: PANTOPRAZOLE 40 MG/10 ML (PROTONIX) VIAL IV SCH (07:11)
[2016-07-19] MEDS: meTOprolol TARTRATE 50 MG (LOPRESSOR) TAB PO SCH (08:16)
[2016-07-19] MEDS: DEXMEDETOMIDINE INJECTION 400 MCG in NS (IVPB) 100 ML IV SCH ×2 (08:16→11:57)
[2016-07-19] MEDS: amLODIPine 10 MG (NORVASC) TAB NG SCH (08:16)
[2016-07-19] MEDS: AMIODARONE 200 MG (CORDARONE) TAB PO SCH (08:17)
--- NOTE | 2016-07-19 08:21 | Diagnostic Imaging Report ---
Portable semiupright radiograph of the chest. INDICATION: Hypoxia. FINDINGS: When compared to 07/18/2016, there is significant worsening with extensive infiltrates now seen involving most of the right lung and perihilar and basilar areas in the left lungs with decreased lung volumes. ET tube terminates in the trachea below the level of the clavicles and an NG tube is seen with its distal aspect obscured. There is moderate cardiomegaly. Possible small effusions. IMPRESSION: Significant worsening with extensive bilateral infiltrates and low lung volumes. Dictated by: Dictated on workstation # [id number]
[2016-07-19] MEDS ORDERED: morphine INJ 4 MG/ML 1 ML (VIAL/SYRINGE) IVP PRN ×3 (08:30→14:00)
--- NOTE | 2016-07-19 11:28 | Progress Note (SOAP) ---
Subjective Subjective/Events-last exam Patient intubated and sedated this AM. Many family members in the room including mother, father, sister in law, brother, friend and family friend. Answered questions for family. Date seen by provider: Jul 19, 2016 Objective Exam Last Set of Vital Signs Vital Signs Date Time Temp Pulse Resp B/P (MAP) Pulse Ox O2 Delivery O2 Flow Rate FiO2 07/19/16 11:00 89 34 113/62 91 Mechanical Ventilator 60.00 07/19/16 10:19 60 07/19/16 04:00 99.8 Capillary Refill : Greater Than 3 Seconds I&O Bad tableGeneral: Other (Intubated and Sedated) HEENT: Other (Fixed pupils) Lungs: Other (Diffuse wheezing and crackles) Heart: Regular Rate, No Murmurs Abdomen: Other (minimal bowel sounds, tense abdomen) Extremities: Other (3+ pitting edema to thigh) Skin: Other (Erythema on LE bilaterally and pannus, mild improvement) Results/Procedures Lab Laboratory Tests 07/18/16 12:51: Glucometer 115H 07/18/16 15:19: Sodium Level 142, Potassium Level 4.5, Chloride Level 100, Carbon Dioxide Level 29, Anion Gap 13, Blood Urea Nitrogen 48H, Creatinine 2.19H, Estimat Glomerular Filtration Rate 33, BUN/Creatinine Ratio 22, Glucose Level 108H, Calcium Level 8.2L 07/18/16 16:09: Glucometer 85 07/18/16 18:26: Glucometer 129H 07/18/16 19:56: Glucometer 129H 07/18/16 20:00: Blood Gas Puncture Site RT RAD, Blood Gas Patient Temperature 98.9, Arterial Blood pH 7.35L, Arterial Blood Partial Pressure CO2 57H, Arterial Blood Partial Pressure O2 63L, Arterial Blood HCO3 31H, Arterial Blood Total CO2 32.6H, Arterial Blood Oxygen Saturation 90L, Arterial Blood Base Excess 5.6H, Trav Test YES-POS, Blood Gas Ventilator Setting YES, Blood Gas Inspired Oxygen 75% 07/18/16 22:10: Blood Gas Puncture Site RIGHT RADIAL, Blood Gas Patient Temperature 99.6, Arterial Blood pH 7.37, Arterial Blood Partial Pressure CO2 54H, Arterial Blood Partial Pressure O2 69L, Arterial Blood HCO3 31H, Arterial Blood Total CO2 32.1H , Arterial Blood Oxygen Saturation 92L, Arterial Blood Base Excess 5.5H, Trav Test YES-POS, Blood Gas Ventilator Setting YES, Blood Gas Inspired Oxygen 75% 07/18/16 23:11: Vancomycin Level Trough 18.4 07/18/16 23:34: Glucometer 126H 07/19/16 03:45: Glucometer 152H 07/19/16 04:24: White Blood Count 11.2H, Red Blood Count 5.88H, Hemoglobin 11.3L, Hematocrit 41 , Mean Corpuscular Volume 70L, Mean Corpuscular Hemoglobin 19L, Mean Corpuscular Hemoglobin Concent 27L, Red Cell Distribution Width 22.3H, Platelet Count 175, Mean Platelet Volume , Neutrophils (%) (Auto) 77H, Lymphocytes (%) ( Auto) 9L, Monocytes (%) (Auto) 13H, Eosinophils (%) (Auto) 1, Basophils (%) ( Auto) 0, Neutrophils # (Auto) 8.7H, Lymphocytes # (Auto) 1.0, Monocytes # (Auto ) 1.4H, Eosinophils # (Auto) 0.1, Basophils # (Auto) 0.0, Sodium Level 141, Potassium Level 4.2, Chloride Level 102, Carbon Dioxide Level 26, Anion Gap 13, Blood Urea Nitrogen 47H, Creatinine 2.07H, Estimat Glomerular Filtration Rate 35 , BUN/Creatinine Ratio 23, Glucose Level 156H, Calcium Level 8.3L, Phosphorus Level 3.8, Magnesium Level 2.1 07/19/16 08:30: Glucometer 157H Microbiology 07/18/16 Gram Stain - Final, Resulted 07/18/16 Sputum Culture - Preliminary, Resulted Usual/normal ray isolated. 07/18/16 Urine Culture - Preliminary, Resulted NO GROWTH Radiology Date of Exam: 07/17/16 CHEST 1 VIEW, AP/PA ONLY INDICATION: Dyspnea, intubation, status post CODE BLUE. DISCUSSION: Two views of the chest were obtained, comparison 01/27/2016. Exam is limited due to portable technique and patient body habitus. Endotracheal tube is projected adjacent to the air-filled trachea, concerning for esophageal intubation. Recommend clinical correlation. Cardiomegaly is noted. Bilateral mixed interstitial alveolar opacities likely represent mild pulmonary edema. No pleural fluid or pneumothorax identified on the supine views. Elevated right hemidiaphragm is again noted. Impression: 1. Cardiomegaly with mild pulmonary edema. 2. Endotracheal tube is projected adjacent to the air-filled trachea on these two supine views, concerning for esophageal intubation. Recommend clinical correlation. Note to director trust: This is a critical finding, please call results. Date of Exam: 07/18/16 CT ABDOMEN/PELVIS WO PROCEDURE: CT abdomen and pelvis without contrast. TECHNIQUE: Multiple contiguous axial images were obtained through the abdomen and pelvis without the use of intravenous contrast. INDICATION: Generalized abdominal pain, status post CODE BLUE. COMPARISON: None. DISCUSSION: Consolidation is present within the bilateral lung bases, atelectasis and/or pneumonia. Mild cardiomegaly is present. No pleural or pericardial fluid. Bilateral rib fractures are noted, likely due to recent CPR. Cholelithiasis is present. Fatty hepatomegaly is noted. Mild ascites is present. Mild induration of the mesentery, likely due to edema. Anasarca is noted. The appendix is unremarkable. The large and small bowel loops appear within normal limits. The prostate is within normal size. Urinary bladder is decompressed by Gallegos catheter. The stomach, spleen, pancreas, adrenal glands, and kidneys are unremarkable. IMPRESSION: 1. Ascites, mesenteric edema, and anasarca. 2. Bibasilar consolidation. 3. Cholelithiasis. 4. Fatty hepatomegaly. 5. Cardiomegaly and bilateral rib fractures. 6. Agree with preliminary report. Date of Exam:07/18/16 CT HEAD WO PROCEDURE: CT head without contrast. TECHNIQUE: Multiple contiguous axial images were obtained through the brain without the use of intravenous contrast. INDICATION: Periorbital edema. Unresponsive. COMPARISON: CT head without contrast 01/20/2014. FINDINGS: No intracranial hemorrhage, mass effect, hydrocephalus or extra-axial fluid collections. No CT evidence of acute infarction. Mild mucosal thickening and small amount of fluid in the maxillary and ethmoid sinuses. There are no inflammatory changes in the post-septal orbits. Prominence of the soft tissues overlying the orbits bilaterally, right greater than left. Visualized osseous structures appear intact. ETT. OGT. IMPRESSION: 1. No acute intracranial CT findings. 2. Soft tissue prominence overlying the orbits bilaterally, right greater than left. No mass or inflammatory changes within the post-septal orbits. Assessment/Plan Assessment/Plan Plan 45 yo M that was admitted following witnessed collapse and subsequent CPR Plan s/p Code Blue with ROS - Fixed pupils - Palliative care following with patient and family once they arrive - DNR order this AM Acute hypoxic respiratory failure - Currently intubated, Dr Bhatti with Pulmonary managing vent and critical care of patient Cellulitis of Abdomen and LE bilaterally - Currently on D2 Vanco/Clindamycin - blood cultures pending - Dopplers LE bilaterally pending Anasarca/edema present in abdomen Lactic Acidosis: Resolved Acute Renal Insufficiency: mild improvement - Likely 2/2 hypoperfusion, continue to monitor Hyperkalemia: Resolved FEN: NPO DVT PPX: D/c lovenox 2/2 to active bright red blood out of OG tube Dispo: Poor Social: Spoke with family this AM. His mother is currently making decisions. DNR order was signed this AM with Dr Bhatti. Goal is to see how the next 24- 48hrs are with the patient. He currently withdraws to pain but not following any commands at this time. Diagnosis/Problems: Clinical Quality Measures DVT/VTE Risk/Contraindication: Risk Factor Score Per Nursin RFS Level Per Nursing on Admit: 4+=Very High ABBEY JOHNSON MD Jul 19, 2016 11:28
[2016-07-19] MEDS ORDERED: DEXMEDETOMIDINE INJECTION 1,000 MCG in NS (IVPB) 240 ML IV SCH (13:00)
--- NOTE | 2016-07-19 13:37 | Pulmonary Progress Note ---
Standard Progress Note Progress Notes Called to bedside to discuss comfort care only. Assessment & Plan S/P Code blue Severe anoxic encephalopathy Acute respiratory failure with very difficult airway Morbidly obese with probable severe PAYAL contributing to his current status atelectasis with mucous plugging Abdominal Cellulitis Acute renal failure multiorgan failure -Pt has been off of Diprivan since 0600AM and is not making any purposeful movements. I was called to bedside by family to discuss comfort care only and withdrawing life support. Family and extended family is at bedside and they all wish to D/C ventilator and make patient comfort care only. They do understand patient will probably within 24hrs upon taking him off ventilator. They just want him to be comfortable. YEYO ALLISON DO Jul 19, 2016 13:37
[2016-07-19] MEDS ORDERED: LORazepam INJ 2 MG/ML (ATIVAN) VIAL IVP ONE ×2 (13:45→14:00)
--- NOTE | 2016-07-20 11:44 | Discharge Summary ---
Diagnosis/Chief Complaint Date of Admission Jul 18, 2016 at 00:15 Date of Discharge Jul 19, 2016 at 15:30 Admission Diagnosis Admission Diagnosis s/p Cardiac Arrest Acute Respiratory Failure Anoxic Encephalopathy Multi-Organ Failure Acute Renal Failure Abdominal Cellulitis Discharge Diagnosis See Above Chief Complaint/HPI Chief Complaint/HPI 45 yo M that had a witnessed collapse as roommate was trying to help him get out of bed. Roommate began CPR and patient received CPR for 19 mins prior to ER arrival. Speaking with roommate he states that Sonny had not been feeling well for the past several days and was complaining about abdominal pain. Roommate denies any other complaints by patient. Discharge Summary-Simple/Stand Procedures Bronchoscopy by Dr Bhatti: remove mucus plugging CT Chest/Abdomen and CT Head Consultations Discharge Physical Examination Allergies: Coded Allergies: Penicillins (Unverified Allergy, Unknown, 12/12/13) Vitals & I&Os Vital Sign - Last 12Hours Date Time Temp Pulse Resp B/P (MAP) Pulse Ox O2 Delivery O2 Flow Rate FiO2 07/19/16 12:16 90 28 91 60 07/19/16 12:00 99.8 07/19/16 11:00 113/62 Mechanical Ventilator 60.00 Hospital Course See final discharge diagnosis. Radiology Reviewed Date of Exam: 07/17/16 CHEST 1 VIEW, AP/PA ONLY INDICATION: Dyspnea, intubation, status post CODE BLUE. DISCUSSION: Two views of the chest were obtained, comparison 01/27/2016. Exam is limited due to portable technique and patient body habitus. Endotracheal tube is projected adjacent to the air-filled trachea, concerning for esophageal intubation. Recommend clinical correlation. Cardiomegaly is noted. Bilateral mixed interstitial alveolar opacities likely represent mild pulmonary edema. No pleural fluid or pneumothorax identified on the supine views. Elevated right hemidiaphragm is again noted. Impression: 1. Cardiomegaly with mild pulmonary edema. 2. Endotracheal tube is projected adjacent to the air-filled trachea on these two supine views, concerning for esophageal intubation. Recommend clinical correlation. Note to web site manager: This is a critical finding, please call results. Date of Exam: 07/18/16 CT ABDOMEN/PELVIS WO PROCEDURE: CT abdomen and pelvis without contrast. TECHNIQUE: Multiple contiguous axial images were obtained through the abdomen and pelvis without the use of intravenous contrast. INDICATION: Generalized abdominal pain, status post CODE BLUE. COMPARISON: None. DISCUSSION: Consolidation is present within the bilateral lung bases, atelectasis and/or pneumonia. Mild cardiomegaly is present. No pleural or pericardial fluid. Bilateral rib fractures are noted, likely due to recent CPR. Cholelithiasis is present. Fatty hepatomegaly is noted. Mild ascites is present. Mild induration of the mesentery, likely due to edema. Anasarca is noted. The appendix is unremarkable. The large and small bowel loops appear within normal limits. The prostate is within normal size. Urinary bladder is decompressed by Gallegos catheter. The stomach, spleen, pancreas, adrenal glands, and kidneys are unremarkable. IMPRESSION: 1. Ascites, mesenteric edema, and anasarca. 2. Bibasilar consolidation. 3. Cholelithiasis. 4. Fatty hepatomegaly. 5. Cardiomegaly and bilateral rib fractures. 6. Agree with preliminary report. Date of Exam:07/18/16 CT HEAD WO PROCEDURE: CT head without contrast. TECHNIQUE: Multiple contiguous axial images were obtained through the brain without the use of intravenous contrast. INDICATION: Periorbital edema. Unresponsive. COMPARISON: CT head without contrast 01/20/2014. FINDINGS: No intracranial hemorrhage, mass effect, hydrocephalus or extra-axial fluid collections. No CT evidence of acute infarction. Mild mucosal thickening and small amount of fluid in the maxillary and ethmoid sinuses. There are no inflammatory changes in the post-septal orbits. Prominence of the soft tissues overlying the orbits bilaterally, right greater than left. Visualized osseous structures appear intact. ETT. OGT. IMPRESSION: 1. No acute intracranial CT findings. 2. Soft tissue prominence overlying the orbits bilaterally, right greater than left. No mass or inflammatory changes within the post-septal orbits. Discussion & Recommendations Patient admitted following CPR after witness collapse. CPR ~ 19mins. Patient admitted to ICU requiring full life support. Patient had sustained anoxic injury resulting in multi-organ failure. Patient's family at bedside and agreed to change goal of care to comfort care. Patient after stopping life support measures. Discharge Condition at discharge Instructions to patient/family Please see electonic discharge instructions given to patient. Discharge Medications Reviewed and agree with Discharge Medication list on patient's Discharge Instruction sheet Clinical Quality Measures DVT/VTE Risk/Contraindication: Risk Factor Score Per Nursin RFS Level Per Nursing on Admit: 4+=Very High Comfort Measures/ Type of Care: Comfort Measures Date of : Jul 19, 2016 Notified by ICU nurse at 07/19/16 @ 1417 that patient passed Copy Copies To 1: Loraine JULIEN HOLLY R MD Jul 20, 2016 11:44
== END 2016-07-19 15:30 | disposition expired | DRG 164 ==
LOC: EDUNIT# 23:42 → ER 23:44 → ICU 07-18 00:15
PROVIDERS: ADMIT Internal Medicine; ATTEND Internal Medicine
PROC: 0B948ZZ Drainage of Right Upper Lobe Bronchus, Via Natural or Artificial Opening Endoscopic (ICD-10-PCS; principal; 2016-07-18)
PROC: 5A1945Z Respiratory Ventilation, 24-96 Consecutive Hours (ICD-10-PCS; 2016-07-18)
DX: J96.01 Acute respiratory failure with hypoxia (principal); G93.1 Anoxic brain damage, not elsewhere classified; T17.590A Other foreign object in bronchus causing asphyxiation, initial encounter; N17.9 Acute kidney failure, unspecified; Z68.44 Body mass index [BMI] 60.0-69.9, adult; L03.311 Cellulitis of abdominal wall; L03.115 Cellulitis of right lower limb; Z66 Do not resuscitate; Z51.5 Encounter for palliative care; L03.116 Cellulitis of left lower limb; J98.11 Atelectasis; I46.9 Cardiac arrest, cause unspecified; G47.33 Obstructive sleep apnea (adult) (pediatric); E66.01 Morbid (severe) obesity due to excess calories; J44.9 Chronic obstructive pulmonary disease, unspecified; I11.0 Hypertensive heart disease with heart failure; I50.9 Heart failure, unspecified; E11.9 Type 2 diabetes mellitus without complications; I48.91 Unspecified atrial fibrillation; K80.20 Calculus of gallbladder without cholecystitis without obstruction; F17.210 Nicotine dependence, cigarettes, uncomplicated; Z79.84 Long term (current) use of oral hypoglycemic drugs
CPT/HCPCS: 36415; 70450; 71010; 74176; 80048; 80053; 80202; 80306; 81000; 82805; 82962; 83605; 83735; 83880; 84100; 84484; 85025; 85610; 85730; 86141; 87040; 87070; 87081; 87088; 87205; 93005; 93041; 93970; 94002; 94640; 94668; 94799; 96365; 96375; 99291; 99292